=== PATIENT | female | born 1975 | race Caucasian/White ===

== ENCOUNTER 2019-02-04 18:31 | Emergency (ER) | payer OTHER ==
[2019-02-04 19:16] LABS: Absolute Lymphocytes (CBC) 2.7 K/uL (0.7-4.9); Absolute Monocytes 0.5 K/uL (0.1-1.3); Basophils % 1.4 % (0-1.3); Eosinophils % 1.5 % (0-4.4); Hematocrit 42.9 % (36.0-45.0); Lymphocytes % 32.6 % (15.3-44.8); MPV 8.6 fL (7.6-11.3); Monocytes % 5.4 % (3.3-12.3); RBC Red Blood Cell Count 4.65 M/uL (3.86-4.86)
[2019-02-04 19:25] LABS: Protime INR 0.9
[2019-02-04 19:38] LABS: Blood Morphology Comment NOT SEEN (NOT SEEN); Platelet Estimate ADEQ; Urine White Blood Cell Casts OK
[2019-02-04 19:40] LABS: ALT/SGPT 22 U/L (12-78); AST/SGOT 14 U/L (15-37); Albumin 3.9 g/dL (3.4-5.0); Alkaline Phosphatase 90 U/L (45-117); BUN Blood Urea Nitrogen 8 mg/dL (7-18); Bicarbonate 24 mmol/L (21-32); Bilirubin Direct 0.1 mg/dL (0-0.2); Bilirubin Total 0.3 mg/dL (0.2-1.0); Glucose Level 88 mg/dL (74-106); Magnesium 2.2 mg/dL (1.8-2.4); NT PRO-BNP 190 pg/mL (<125); Potassium 3.7 mmol/L (3.5-5.1); Protein, Total 6.9 g/dL (6.4-8.2); Sodium Level 142 mmol/L (136-145); Troponin (Emerg Dept Use Only) 0.09 ng/mL (0.0-0.045)
--- NOTE | 2019-02-04 19:59 | RAD REPORT ---
EXAM DESCRIPTION: RAD - Chest Single View - 02/04/2019 7:13 pm CLINICAL HISTORY: Substernal chest pain COMPARISON: None. TECHNIQUE: AP portable chest image was obtained 1910 hours . FINDINGS: Lungs are clear. Heart and vasculature are normal. No measurable pleural effusion and no p neumothorax. No acute bony abnormality seen. No acute aortic findings suspected. IMPRESSION: No acute cardiopulmonary process.
--- NOTE | 2019-02-04 21:20 | EDPHYS ---
Physician Documentation [facility] Name: Janeen Serrano Age: 44 yrs Sex: Female : 1975 Arrival Date: 02/04/2019 Time: 18:31 Bed 3 Private MD: ED Physician Historical: - Allergies: 02/04 18:49 NSAIDS; hb 18:49 Codeine; hb - Home Meds: 18:49 atorvastatin oral oral [Active]; Lisinopril Oral [Active]; Aspirin Oral [Active]; hb Dicyclomine Oral [Active]; Clonidine Oral [Active]; Prilosec Oral [Active]; Albuterol Inhl [Active]; - PMHx: 18:49 Hypertension; GERD; hb - PSHx: 18:49 Heart stents; hb - Immunization history:: Adult Immunizations up to date. - Social history:: Smoking status: Patient/guardian denies using tobacco. - Ebola Screening: : No symptoms or risks identified at this time. Vital Signs: 18:51 BP 184 / 104; Pulse 65; Resp 17; Temp 97.8; Pulse Ox 98% on R/A; Weight 76.2 kg; Height hb 5 ft. 5 in. (165.10 cm); Pain 3/10; 19:15 BP 181 / 107; Pulse 70; Resp 17 S; Pulse Ox 97% on R/A; ak1 21:20 BP 164 / 90; Pulse 58; Resp 16; Temp 98.1; Pulse Ox 97% on R/A; ak1 18:51 Body Mass Index 27.96 (76.20 kg, 165.10 cm) hb MDM: 19:20 Patient medically screened. tw02/04 18:55 Order name: Basic Metabolic Panel 02/04 18:55 Order name: CBC with Diff 02/04 18:55 Order name: LFT's 02/04 18:55 Order name: Magnesium 02/04 18:55 Order name: NT PRO-BNP 02/04 18:55 Order name: PT-INR 02/04 18:55 Order name: Troponin (emerg Dept Use Only) 02/04 18:55 Order name: XRAY Chest (1 view) 02/04 18:55 Order name: EKG; Complete Time: 18:56 2 02/04 18:55 Order name: Cardiac monitoring; Complete Time: 18:55 tw2 02/04 18:56 Order name: Basic Metabolic Panel EDNE 02/04 18:56 Order name: CBC with Automated Diff EDNE 02/04 18:56 Order name: Liver (Hepatic) Function [facility] 02/04 19:38 Order name: CBC Smear Scan EDNE 02/04 18:55 Order name: EKG - Nurse/Tech; Complete Time: 18:55 tw2 02/04 18:55 Order name: IV Saline Lock; Complete Time: 18:55 tw2 02/04 18:55 Order name: Labs collected and sent; Complete Time: 19:09 tw2 02/04 18:55 Order name: O2 Per Protocol; Complete Time: 18:56 tw2 02/04 18:55 Order name: O2 Sat Monitoring; Complete Time: 18:56 tw2 Administered Medications: No medications were administered Disposition: 02/04/19 21:19 Patient has left against medical advice. Impression: Chest pain, unspecified. - Patients states they are going to Home. - Condition is Undetermined. Follow up: Private Physician; When: Upon discharge from the Emergency Department; Reason: If symptoms return, Recheck today's complaints, Continuance of care. - Problem is new. - Symptoms are unchanged. Addendum: 02/24/2019 04:50 Addendum: HPI: Pt is a 44 year old female that comes to the ED with complaint of of t w4 chest pain. Pt states the pain is sharp. She states the pain does not radiate. There are no alleviating or aggravating factors related to pt's pain. Pt denies SOB, nausea, vomiting or cough.. Addendum: ROS: const: negative for fever, chills malaise, HEENT: negative for visual changes, sore throat, neck pain CV: positive for chest pain, negative for palpations CASEY Resp: negative for SOB, LAURITA , cough Abdomen: negative for abdominal pain, nausea, vomiting, diarrhea Ext: negative for injury, edema. all other systems negative except as marked. 04:58 Addendum: PE: Gen: well developed well nourished female in NAD HEENT:PERRLA, EOMI, neck t w4 supple Resp: CTAB, BS normal CV: RRR, nl S1, S2 no gallops Abdomen: soft, ND, NT Ext: no edema, nontender. Signatures: Dispatcher [employer] EDMS Tamanna Negron RN RN ak1 Christel Tidwell RN Safia Gomez RN RN tw2 Toy Garcia MD MD tw4 Corrections: (The following items were deleted from the chart) 02/04 21:22 21:19 02/04/2019 21:19 Patients has left against medical advice. Impression: Chest ak1 pain, unspecified. Patient states they are going to Home. Condition is Undetermined. Follow up: Private Physician; When: Upon discharge from the Emergency Department; Reason: If symptoms return, Recheck today's complaints, Continuance of care. Problem is new. Symptoms are unchanged. tw4
--- NOTE | 2019-02-04 21:20 | ER ---
Nurse's Notes [facility] Name: Janeen Serrano Age: 44 yrs Sex: Female : 1975 Arrival Date: 02/04/2019 Time: 18:31 Bed 3 Private MD: Diagnosis: Chest pain, unspecified Presentation: 02/04 18:45 Presenting complaint: Patient states: Worsening substernal chest pain that radiates to left chest and left arm x 3 days. 18:45 Transition of care: patient was not received from another setting of care. Onset of hb symptoms was February 01, 2019. Risk Assessment: Do you want to hurt yourself or someone else? Patient reports no desire to harm self or others. Care prior to arrival: None. 18:45 Method Of Arrival: Ambulatory 18:45 Acuity: SAVITA 3 hb 18:52 Initial Sepsis Screen: Does the patient meet any 2 criteria? No. Patient's initial hb sepsis screen is negative. Does the patient have a suspected source of infection? No. Patient's initial sepsis screen is negative. Historical: - Allergies: 18:49 NSAIDS; hb 18:49 Codeine; hb - Home Meds: 18:49 atorvastatin oral oral [Active]; Lisinopril Oral [Active]; Aspirin Oral [Active]; hb Dicyclomine Oral [Active]; Clonidine Oral [Active]; Prilosec Oral [Active]; Albuterol Inhl [Active]; - PMHx: 18:49 Hypertension; GERD; hb - PSHx: 18:49 Heart stents; hb - Immunization history:: Adult Immunizations up to date. - Social history:: Smoking status: Patient/guardian denies using tobacco. - Ebola Screening: : No symptoms or risks identified at this time. Screenin:46 Abuse screen: Denies threats or abuse. Denies injuries from another. Nutritional hb screening: No deficits noted. Tuberculosis screening: No symptoms or risk factors identified. Fall Risk None identified. Assessment: 18:52 General: Appears in no apparent distress. well groomed, Behavior is calm, cooperative, tw2 appropriate for age. Pain: Complains of pain in mid-sternal area and left breast Pain began 2-3 days ago. Neuro: Level of Consciousness is awake, alert, obeys commands, Oriented to person, place, time, situation. Cardiovascular: Reports chest pain, Heart tones S1 S2 Patient's skin is warm and dry. Respiratory: Airway is patent Respiratory effort is even, unlabored, Respiratory pattern is regular, symmetrical, Breath sounds are clear bilaterally. GI: No signs and/or symptoms were reported involving the gastrointestinal system. Abdomen is round non-distended, Bowel sounds present X 4 quads. : No signs and/or symptoms were reported regarding the genitourinary system. EENT: No signs and/or symptoms were reported regarding the EENT system. Derm: No signs and/or symptoms reported regarding the dermatologic system. Musculoskeletal: No signs and/or symptoms reported regarding the musculoskeletal system. Range of motion: intact in all extremities. 19:45 Reassessment: Patient appears in no apparent distress at this time. Patient and/or ak1 family updated on plan of care and expected duration. Pain level reassessed. Patient is alert, oriented x 3, equal unlabored respirations, skin warm/dry/pink. 19:45 General: Appears in no apparent distress. comfortable, Behavior is calm, cooperative, ak1 appropriate for age. 21:17 Reassessment: pt informed of possible observation. pt removed IV, refused to stay, ak1 refused to sign AMA form. Dr. Garcia notified. pt appears to be in no distress at this time. pt c/o increase pain due to fibromyalgia. pt left with steady gait with family. pt encouraged should she have chest pain again to return to ER or call 911. Vital Signs: 18:51 BP 184 / 104; Pulse 65; Resp 17; Temp 97.8; Pulse Ox 98% on R/A; Weight 76.2 kg; Height hb 5 ft. 5 in. (165.10 cm); Pain 3/10; 19:15 BP 181 / 107; Pulse 70; Resp 17 S; Pulse Ox 97% on R/A; ak1 21:20 BP 164 / 90; Pulse 58; Resp 16; Temp 98.1; Pulse Ox 97% on R/A; ak1 18:51 Body Mass Index 27.96 (76.20 kg, 165.10 cm) hb ED Course: 18:31 Patient arrived in ED. as 18:46 Arm band placed on. hb 18:49 Inserted saline lock: 22 gauge in left antecubital area, using aseptic technique. Blood sg collected. 18:51 Triage completed. hb 18:52 Safia Avelar, RN is Primary Nurse. tw2 18:52 Patient has correct armband on for positive identification. school lunch monitor on. Pulse hb ox on. NIBP on. 18:54 Patient maintains SpO2 saturation greater than 95% on room air. tw2 19:06 Initial lab(s) drawn, by me, sent to lab. by venipuncture 23G to right forearm. 3 19:08 Report given to GAYATRI Beckwith. tw2 19:12 XRAY Chest (1 view) In Process Unspecified. EDMS 19:20 Toy Garcia MD is Attending Physician. tw4 21:20 IV discontinued, pt removed IV and left AMA. ak1 Administered Medications: No medications were administered Outcome: 21:20 AMA Left before signing form. ak1 21:22 Patient left the ED. ak1 Signatures: Dispatcher [employer] EDMS Javy Solorzano RN RN sg Martinez, Amelia as Krenek, Amber RN RN ak1 Christel Tidwell, GAYATRI RN Safia Avelar, RN RN tw2 Ebonie Paiz 3 Toy Garcia MD MD tw4
--- NOTE | 2019-02-05 14:26 | EKG ---
Test Date: 2019-02-04 Test Time: 18:41:45 Record Systems Analyst: JADA MEASUREMENT RESULTS: Intervals: Rate: 62 NE: 116 QRSD: 80 QT: 418 QTc: 424 [place]: P: -12 NE: 116 QRS: 40 T: 52 INTERPRETIVE STATEMENTS: Normal sinus rhythm Normal ECG No previous ECG available for comparison Electronically Signed On 02-05-19 14:26:14 CDT by Dimas Magallon
== END 2019-02-04 21:22 | disposition left against medical advice (07) ==
LOC: ER 18:31
DX: R07.9 Chest pain, unspecified (principal); I10 Essential (primary) hypertension; K21.9 Gastro-esophageal reflux disease without esophagitis; Z79.82 Long term (current) use of aspirin; Z88.5 Allergy status to narcotic agent; Z88.6 Allergy status to analgesic agent; Z95.818 Presence of other cardiac implants and grafts
CPT/HCPCS: 36415; 71045; 80048; 80076; 83735; 83880; 84484; 85025; 85610; 93005; 99285

== ENCOUNTER 2019-02-09 19:54 | Emergency (ER) | payer OTHER ==
--- NOTE | 2019-02-09 20:45 | RAD REPORT ---
EXAM DESCRIPTION: RAD - Chest Single View - 02/09/2019 8:38 pm CLINICAL HISTORY: CHEST PAIN Chest pain. COMPARISON: Chest Single View dated 02/04/2019 FINDINGS: Portable technique limits examination quality. The lungs are grossly clear. The heart is normal in size. No displaced fractures. IMPRESSION: No acute intrathoracic process suspected.
[2019-02-09 21:02] LABS: Absolute Monocytes 0.4 K/uL (0.1-1.3); Absolute Neutrophil 4.4 K/uL (1.8-8.0); Basophils % 1.4 % (0-1.3); Eosinophils % 1.3 % (0-4.4); Hematocrit 43.3 % (36.0-45.0); Lymphocytes % 37.6 % (15.3-44.8); MPV 8.7 fL (7.6-11.3); Monocytes % 4.9 % (3.3-12.3); RBC Red Blood Cell Count 4.67 M/uL (3.86-4.86)
[2019-02-09 21:25] LABS: BUN Blood Urea Nitrogen 11 mg/dL (7-18); Bicarbonate 26 mmol/L (21-32); Glucose Level 136 mg/dL (74-106); NT PRO-BNP 235 pg/mL (<125); Potassium 3.4 mmol/L (3.5-5.1); Sodium Level 142 mmol/L (136-145); Troponin (Emerg Dept Use Only) < 0.02 ng/mL (0.0-0.045)
[2019-02-09] MEDS ORDERED: FENTANYL CITR 100 MCG/2 ML ONE (21:25)
--- NOTE | 2019-02-09 21:37 | EDPHYS ---
Physician Documentation [facility] Name: Janeen Serrano Age: 44 yrs Sex: Female : 1975 Arrival Date: 02/09/2019 Time: 19:55 Bed 14 Private MD: ED Physician Ivan Jones HPI: 02/09 21:31 This 44 yrs old Female presents to ER via Ambulatory with complaints of Chest gs Pain. 21:31 The patient or guardian reports chest pain that is located primarily in the anterior gs chest wall. Onset: at 16:00. Associated signs and symptoms: Pertinent positives: headache, Pertinent negatives: abdominal pain, diaphoresis, shortness of breath. The chest pain is described as dull. Duration: The patient or guardian reports a single episode, that is still ongoing. Modifying factors: The symptoms are alleviated by nothing. the symptoms are aggravated by nothing. Severity of pain: At its worst the pain was moderate in the emergency department the pain is unchanged. The patient has experienced similar episodes in the past, multiple times. 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 - Social history:: Smoking status: Patient uses tobacco products, smokes one pack cigarettes per day. - Ebola Screening: : Patient denies travel to an Ebola-affected area in the 21 days before illness onset. ROS: 21:31 All other systems are negative. gs Exam: 21:31 Head/Face: Normocephalic, atraumatic. Eyes: Pupils equal round and reactive to light, gs extra-ocular motions intact. Lids and lashes normal. Conjunctiva and sclera are non-icteric and not injected. Cornea within normal limits. Periorbital areas with no swelling, redness, or edema. ENT: Nares patent. No nasal discharge, no septal abnormalities noted. Tympanic membranes are normal and external auditory canals are clear. Oropharynx with no redness, swelling, or masses, exudates, or evidence of obstruction, uvula midline. Mucous membranes moist. Neck: Trachea midline, no thyromegaly or masses palpated, and no cervical lymphadenopathy. Supple, full range of motion without nuchal rigidity, or vertebral point tenderness. No Meningismus. Chest/axilla: Normal chest wall appearance and motion. Nontender with no deformity. No lesions are appreciated. Cardiovascular: Regular rate and rhythm with a normal S1 and S2. No gallops, murmurs, or rubs. Normal PMI, no JVD. No pulse deficits. Respiratory: Lungs have equal breath sounds bilaterally, clear to auscultation and percussion. No rales, rhonchi or wheezes noted. No increased work of breathing, no retractions or nasal flaring. Abdomen/GI: Soft, non-tender, with normal bowel sounds. No distension or tympany. No guarding or rebound. No evidence of tenderness throughout. Back: No spinal tenderness. No costovertebral tenderness. Full range of motion. Skin: Warm, dry with normal turgor. Normal color with no rashes, no lesions, and no evidence of cellulitis. MS/ Extremity: Pulses equal, no cyanosis. Neurovascular intact. Full, normal range of motion. Neuro: Awake and alert, GCS 15, oriented to person, place, time, and situation. Cranial nerves II-XII grossly intact. Motor strength 5/5 in all extremities. Sensory grossly intact. Cerebellar exam normal. Normal gait. 21:31 Constitutional: The patient appears in no acute distress, alert, awake. 21:31 ECG was reviewed by the Attending Physician. Vital Signs: 20:01 BP 158 / 101; Pulse 70; Resp 18; Temp 97.2; Pulse Ox 98% on R/A; Weight 74.84 kg (R); aj1 Height 5 ft. 5 in. (165.10 cm); Pain 8/10; 21:15 BP 156 / 96; Pulse 69; Resp 16; Pulse Ox 96% on R/A; aa1 20:01 Body Mass Index 27.46 (74.84 kg, 165.10 cm) aj1 MDM: 20:18 Patient medically screened. gs 21:31 Differential diagnosis: abnormal EKG, acute myocardial infarction, chest wall pain, gs stable angina, unstable angina. HEART Score: History: Slightly Suspicious (0), ECG: Non specific repolarization disturbance / LBTB / PM (1), Age: > 45 and < 65 years (1), Risk Factors: > or = 3 Risk factors for atherosclerotic disease (2), [Hypercholesterolemia] [Hypertension] [Active Smoker] Troponin: < or = 1 x Normal Limit (0). Data reviewed: vital signs, nurses notes, lab test result(s), EKG, radiologic studies. Counseling: I had a detailed discussion with the patient and/or guardian regarding: the historical points, exam findings, and any diagnostic results supporting the discharge/admit diagnosis, lab results, radiology results, pt understands risk category and doesn't want admission will dc with precautions. 02/09 20:19 Order name: Basic Metabolic Panel; Complete Time: 21:29 02/09 20:19 Order name: CBC with Diff; Complete Time: 21:18 02/09 20:19 Order name: NT PRO-BNP; Complete Time: : 02/09 20:19 Order name: Troponin (emerg Dept Use Only); Complete Time: :02/09 20:19 Order name: XRAY Chest (1 view); Complete Time: 21:18 02/09 20:19 Order name: EKG; Complete Time: 20:20 02/09 20:19 Order name: Cardiac monitoring; Complete Time: 21:02/09 20:19 Order name: EKG - Nurse/Tech; Complete Time: 21:02/09 20:19 Order name: IV Saline Lock; Complete Time: 20:52 02/09 20:19 Order name: Labs collected and sent; Complete Time: 20:52 02/09 20:19 Order name: O2 Per Protocol; Complete Time: 21:02/09 20:19 Order name: O2 Sat Monitoring; Complete Time: : gs EC: Rate is 56 beats/min. Rhythm is regular. VT interval is normal. QRS interval is normal. gs Q waves are Old. T waves are Flattened. Clinical impression: NSR w/ Non-specific ST/T Changes. Interpreted by me. Administered Medications: 21:21 Drug: fentaNYL (PF) 50 mcg Route: IVP; Site: right forearm; aa1 21:57 Follow up: Response: No adverse reaction; Pain is decreased aa1 Disposition: 02/09/19 21:37 Discharged to Home. Impression: Chest pain, unspecified. - Condition is Stable. - Discharge Instructions: Nonspecific Chest Pain. - Medication Reconciliation Form, Thank You Letter, Antibiotic Education, Prescription Opioid Use form. - Follow up: Dimas Magallon MD; When: 2 - 3 days; Reason: Re-evaluation by your physician. Signatures: Dispatcher [employer] EDKarine Hickman RN RN aj1 Stacey De La Garza RN RN aa1 Ivan Jones MD MD gs Corrections: (The following items were deleted from the chart) 21:58 21:37 02/09/2019 21:37 Discharged to Home. Impression: Chest pain, unspecified. aa1 Condition is Stable. Forms are Medication Reconciliation Form, Thank You Letter, Antibiotic Education, Prescription Opioid Use. Follow up: Dimas Magallon; When: 2 - 3 days; Reason: Re-evaluation by your physician. gs
--- NOTE | 2019-02-09 21:37 | ER ---
Nurse's Notes [facility] Name: Janeen Serrano Age: 44 yrs Sex: Female : 1975 Arrival Date: 02/09/2019 Time: 19:55 Bed 14 Private MD: Diagnosis: Chest pain, unspecified Presentation: 02/09 19:57 Presenting complaint: Patient states: Chest pain that started at 1600 today. Patient aj1 reports that she was seen here recently for chest pain, but she had decided to leave before getting results. Reports pain in middle and left side of chest, pain radiates to both shoulders and is worse when she takes a deep breath. Patient also reports shortness of breath. Transition of care: patient was not received from another setting of care. Onset of symptoms was February 09, 2019 at 16:00. Risk Assessment: Do you want to hurt yourself or someone else? Patient reports no desire to harm self or others. Initial Sepsis Screen: Does the patient meet any 2 criteria? No. Patient's initial sepsis screen is negative. Does the patient have a suspected source of infection? No. Patient's initial sepsis screen is negative. Care prior to arrival: None. 19:57 Method Of Arrival: Ambulatory aj1 19:57 Acuity: SAVITA 3 aj1 Triage Assessment: 20:01 General: Appears in no apparent distress. comfortable, Behavior is calm, cooperative, aj1 appropriate for age. Pain: Complains of pain in chest Pain currently is 8 out of 10 on a pain scale. Neuro: Level of Consciousness is awake, alert, obeys commands, Oriented to person, place, time, situation. Cardiovascular: Reports chest pain, Patient's skin is warm and dry. Respiratory: Airway is patent Respiratory effort is even, unlabored, Respiratory pattern is regular, symmetrical. 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 - Social history:: Smoking status: Patient uses tobacco products, smokes one pack cigarettes per day. - Ebola Screening: : Patient denies travel to an Ebola-affected area in the 21 days before illness onset. Screenin:30 Abuse screen: Denies threats or abuse. Denies injuries from another. Nutritional aa1 screening: No deficits noted. Tuberculosis screening: No symptoms or risk factors identified. Fall Risk None identified. Assessment: 20:30 General: Appears in no apparent distress. comfortable, Behavior is calm, cooperative, aa1 appropriate for age. Pain: Complains of pain in chest and head Quality of pain is described as aching, Pain began earlier today Is continuous. Neuro: Level of Consciousness is awake, alert, obeys commands, Oriented to person, place, time, situation, Moves all extremities. Full function Gait is steady, Speech is normal, Reports headache. Cardiovascular: Reports chest pain, states, "I think it's my migraine that's making my chest hurt because every time I get a migraine this happens." Heart tones S1 S2 present Rhythm is regular. Respiratory: Airway is patent Respiratory effort is even, unlabored, Respiratory pattern is regular, symmetrical. GI: No signs and/or symptoms were reported involving the gastrointestinal system. : No signs and/or symptoms were reported regarding the genitourinary system. EENT: No signs and/or symptoms were reported regarding the EENT system. Derm: Skin is intact, is healthy with good turgor, Skin is pink, warm \\T\\ dry. Musculoskeletal: Circulation, motion, and sensation intact. Capillary refill < 3 seconds. 21:15 Reassessment: Patient appears in no apparent distress at this time. Patient and/or aa1 family updated on plan of care and expected duration. Pain level reassessed. Patient is alert, oriented x 3, equal unlabored respirations, skin warm/dry/pink. Awaiting provider reassessment. 21:56 Reassessment: Patient appears in no apparent distress at this time. Patient is alert, aa1 oriented x 3, equal unlabored respirations, skin warm/dry/pink. Discussed d/c \\T\\ f/u instructions with pt; denies questions or concerns at this time. Ambulatory to lobby with steady gait. Patient states feeling better. Patient states symptoms have improved. Vital Signs: 20:01 BP 158 / 101; Pulse 70; Resp 18; Temp 97.2; Pulse Ox 98% on R/A; Weight 74.84 kg (R); aj1 Height 5 ft. 5 in. (165.10 cm); Pain 8/10; 21:15 BP 156 / 96; Pulse 69; Resp 16; Pulse Ox 96% on R/A; aa1 20:01 Body Mass Index 27.46 (74.84 kg, 165.10 cm) aj1 ED Course: 19:55 Patient arrived in ED. es 19:59 Triage completed. aj1 20:09 Ivan Jones MD is Attending Physician. 20:30 Stacey De La Garza, RN is Primary Nurse. aa1 20:30 Patient maintains SpO2 saturation greater than 95% on room air. aa1 20:30 Patient has correct armband on for positive identification. Placed in gown. Bed in low aa1 position. air sampling and monitoring on. Pulse ox on. NIBP on. 20:38 XRAY Chest (1 view) In Process Unspecified. EDMS 20:51 Initial lab(s) drawn, by mt, sent to lab. Inserted saline lock: 22 gauge in right lt1 antecubital area, using aseptic technique. 21:37 Dimas Magallon MD is Referral Physician. 21:56 No provider procedures requiring assistance completed. IV discontinued, intact, aa1 bleeding controlled, No redness/swelling at site. Pressure dressing applied. Administered Medications: 21:21 Drug: fentaNYL (PF) 50 mcg Route: IVP; Site: right forearm; aa1 21:57 Follow up: Response: No adverse reaction; Pain is decreased aa1 Outcome: 21:37 Discharge ordered by . gs 21:56 Discharged to home ambulatory, with friend. aa1 21:56 Condition: good 21:56 Discharge instructions given to patient, Instructed on discharge instructions, follow up and referral plans. Demonstrated understanding of instructions, follow-up care. 21:58 Patient left the ED. aa1 Signatures: Dispatcher [employer] Karine Izquierdo RN RN aj Stacey De La Garza RN RN aa1 Marni Rosenthal Ivan Jones MD MD [place] [id number] Corrections: (The following items were deleted from the chart) 21:44 21:37 Tenecteplase (TNKase) screening: Indications for treatment: aa1 aa1
--- NOTE | 2019-02-10 16:33 | EKG ---
Test Date: 2019-02-09 Test Time: 20:38:55 Assembler Metal Building: ABHIJIT MEASUREMENT RESULTS: Intervals: Rate: 56 NV: 136 QRSD: 78 QT: 438 QTc: 422 [place]: P: 36 NV: 136 QRS: 54 T: 66 INTERPRETIVE STATEMENTS: Sinus bradycardia Anterior infarct, age undetermined Abnormal ECG Compared to ECG 02/04/2019 18:41:45 Myocardial infarct finding now present Sinus rhythm no longer present Electronically Signed On 02-10-19 16:31:37 CDT by Dimas Magallon
== END 2019-02-09 21:58 | disposition home or self-care (01) ==
LOC: ER 19:54
DX: R07.9 Chest pain, unspecified (principal); I10 Essential (primary) hypertension; K21.9 Gastro-esophageal reflux disease without esophagitis; Z88.6 Allergy status to analgesic agent; F17.210 Nicotine dependence, cigarettes, uncomplicated
CPT/HCPCS: 36415; 71045; 80048; 83880; 84484; 85025; 93005; 96374; 99285; J3010

== ENCOUNTER 2022-06-18 08:36 | Emergency (ER) | payer OTHER ==
--- OUTSIDE RECORDS SUMMARY | 2022-06-18 08:42 | XMS REPORT | Continuity of Care Document ---
:1975 Author Organization [facility] t Address [address] [place] [address] Care Team Providers Name Role Phone Michael Posey Attending Clinician Unavailable Alis Lynn Attending Clinician Unavailable Natalya Park Admitting Clinician Unavailable Payers Payer Name Policy Type Policy Number Effective Date Expiration Date S ource Problems This patient has no known problems. Allergies, Adverse Reactions, Alerts Allergy Allergy Status Severity Reaction(s) Onset Inactive Treating Comm ents Source Name Type Date Date Clinician NSAIDS DA Active U NECK PAIN [facility] (Non-Agustin 8-13 Clear roidal 00:00: Villalobos Anti-Inf 00 [facility] codeine DA Active U ITCHING [facility] 8-13 Clear 00:00: Villalobos [address] [place] [address] ibuprofe DA Active U UPSET [facility] n STOMACH 8-13 Clear 00:00: Villalobos 00 [facility] Medications This patient has no known medications. Procedures This patient has no known procedures. Encounters Start End Encounter Admission Attending Care Care Encounter Source Date/Time Date/Time Type Type Clinicians Facility Department ID 2022-05-04 2022-05-04 Emergency EM BARBARA Posey TERS [id number] [facility] 20:22:00 22:49:00 Michael 84 [facility] 2022-05-04 2022-05-04 Emergency EM BARBARA Posey KARISSACL [id number] [facility] 20:22:00 22:49:00 Michael [id number] [facility] 2022-05-03 2022-05-03 Emergency EM Leah, Amr HCAMN HCAMN [id number] [facility] 11:28:00 16:46:00 [id number] [facility] 2022-05-03 2022-05-03 Emergency EM Leah, Amr HCAMN LIBRADO [id number] [facility] 11:28:00 16:46:00 [facility] Results Test Description Test Time Test Comments Results Result Comments Source B-TYPE NATRIURETIC PEPTIDE 2022-05-03 16:12:00 Test Item Value Reference Range Interpretation Comme nts B-TYPE NATRIURETIC PEPTIDE (test code = BNP) 29.5 PG/ML 5-100 N TROP-I HIGH [id number] 16:12:00 Test Item Value Reference Range Interpretation Comments TROP-I HIGH 4.8 pg/mL 0.0-51.4 N CAUTION: Units of the SENSITIVITY (test current TR OPI-HS test code = TROPIHS) methodology( pg/mL) differ from the prior test methodolog y (ng/mL) by afac tor of 1000. -------- -------- ---99th Percentile: Fem ales: 0.0-51.4 pg/mL Males: 0.0-76.2 pg/tailor fitter hese results were ob tained using Dimension EXL TnIHreagent. Re sults from different methodologies s hould not becompared to one another as asmita titative results may benedict y bymethod. HCG SERUM [id number] 16:12:00 Test Item Value Reference Range Interpretation Comments HCG SERUM QUAL (test code = HCGQL) NEGATIVE NEGATIVE BASIC METABOLIC [id number] 16:12:00 Test Item Value Reference Range Interpretation Comments SODIUM (test code = NA) 141 mmol/l 134.0-147.0 N POTASSIUM (test code = K) 3.2 mmol/L 3.6-5.2 L CHLORIDE (test code = CL) 103 mmol/l 98.0-107.0 N CARBON DIOXIDE (test code = CO2) 29.0 mmol/l 21.0-33.0 N ANION GAP (test code = GAP) 12.2 0-20 N GLUCOSE (test code = GLU) 123 mg/dl 70.0-110.0 H BLOOD UREA NITROGEN (test code = 14 mg/dl 7.0-18.0 N BUN) CREATININE (test code = CREAT) 0.68 mg/dL 0.60-1.30 N GFR NON BLACK (test code = 97 mL/min 95-105 N GFRNONBLACK) GFR BLACK (test code = GFRBLACK) 118 mL/min 115-127 N CALCIUM (test code = CA) 9.0 mg/dl 8.0-10.5 N CBC W/AUTO [id number] 15:37:00 Test Item Value Reference Range Interpretation Comments WHITE BLOOD CELL (test code = 7.0 K/mm3 4.5-11.0 N WBC) RED BLOOD CELL (test code = 4.91 M/mm3 3.80-5.20 N RBC) HEMOGLOBIN (test code = HGB) 15.0 gm/dL 12.0-16.0 N HEMATOCRIT (test code = HCT) 44.0 % 36.0-48.0 N MEAN CELL VOLUME (test code = 89.6 UM3 82.0-99.0 N MCV) MEAN CELL HGB (test code = MCH) 30.5 UUG 25.5-32.5 N MEAN CELL HGB CONCETRATION 34.1 gm/dL 29.0-35.5 N (test code = MCHC) RED CELL DISTRIBUTION WIDTH 13.5 % 11.5-15.0 N (test code = RDW) RED CELL DISTRIBUTION WIDTH SD 44.3 fL 34.8-50.2 N (test code = RDW-SD) PLATELET COUNT (test code = 251 K/mm3 150-400 N PLT) MEAN PLATELET VOLUME (test code 9.6 fl 7.4-10.4 N = MPV) NEUTROPHIL % (test code = NT%) 59.8 % 49.0-76.0 N IMMATURE GRANULOCYTE % (test 0.3 % 0.0-0.4 N code = IG%) LYMPHOCYTE % (test code = LY%) 31.0 % 23.0-38.0 N MONOCYTE % (test code = MO%) 6.9 % 1.0-10.0 N EOSINOPHIL % (test code = EO%) 1.3 % 1.0-5.0 N BASOPHIL % (test code = BA%) 0.7 % 0.0-1.0 N NUCLEATED RBC % (test code = 0.0 % 0.0-0.1 N NRBC%) NEUTROPHIL # (test code = NT#) 4.2 K/mm3 2.4-6.3 N IMMATURE GRANULOCYTE # (test 0.02 x10 3/uL 0.00-0.07 N code = IG#) LYMPHOCYTE # (test code = LY#) 2.2 K/mm3 1.2-4.0 N MONOCYTE # (test code = MO#) 0.5 K/mm3 0.0-0.6 N EOSINOPHIL # (test code = EO#) 0.1 K/MM3 0.0-0.7 N BASOPHIL # (test code = BA#) 0.1 K/mm3 0.0-0.2 N NUCLEATED RBC # (test code = 0.00 X10 3uL 0.00-0.01 N NRBC#) - CT HEAD/BRAIN W/O [id number] 12:14:00 [facility] : 1975 Sex: F FAX:Alis Lynn DO [place]: [address]: PRE [facility] 1975 Age[facility]S: 47/F [address] [facility] Unit: [id number] Loc: [place], [place] Phys: [place] [address] Acct: [id number] Dis Date: Status: PRE ER PHONE #: [phone] Exam Date: 05/03/2022 1207 FAX #: [phone] Reason: headache EXAMS: CPT CODE: [id number] CT HEAD/BRAIN W/O CONT 41672 EXAM: - CT HEAD/BRAIN W/O CONT HISTORY: headache LOCATION: T 18 COMPARISON: None available time of interpretation. TECHNIQUE: Axial tomograms through the brain were obtained without intravenous contrast. Coronal and sagittal reformatted images are provided. All CT scans are performed using radiation dose reduction technique. Technical factors are evaluated and adjusted to insure appropriate moderation of exposure. Automated dose management technology is applied to adjust the radiation dose to minimize exposure while achieving a diagnostic quality image. FINDINGS: The curtis white matter differentiation is preserved. No hypodensity suggesting acute cerebral infarction is identified, however MRI is more sensitive if this diagnosis is clinically suspected. No intracranial hemorrhage or extra-axial collection is identified. There is no massor mass effect. The ventricles and basal cisterns are age appropriate. The orbits are unremarkable. The visualized paranasal sinuses and mastoid air cells are clear. No acute fracture is present. IMPRESSION: No acute intracranial abnormality. at 1214 Reported and signed by: Tita Oliveros M.D. PAGE 1 Signed Report (CO NTINUED) FAX: LeahAlis TORRES [place]: EM St: PRE Name: MATTEO HERNANDES [facility] : 1975 Age/S: 47/F [address] Unit: [id number] Loc: E.[place], [place]: [place] [address] Acct: [id number] Dis Date: Status: PRE ER PHONE #: [phone] Exam Date: 05/03/2022 1207 FAX #: [phone]: headache EXAMS: CPT CODE: [id number] CT HEAD/BRAIN W/O CONT 22513 (Continued) CC: Alis Lynn DO Technologist: LAVELLE Ryderrd Dt/Tm: 05/03/2022 (1214) [email or web address] Orig Print D/T: S: 05/03/2022 (5377 PAGE 2 Signed Report- XR CHEST 1 [id number] 12:13:00 [facility] : 1975 Sex: F FAX:lAis Lynn DO [place]: EM St: PRE Name: MATTEO HERNANDES [facility] : 1975 Age/S: 47/F [address] Unit #: [id number] Loc: E.[place], [place]: [place] [address] Acct: [id number] Dis Date: Status: PRE ER PHONE #: [phone] Exam Date: 05/03/2022 1210 FAX #: [phone] Reason: SOB EXAMS: CPT CODE: [id number] XR CHEST 1 V 73700 EXAM: XR Chest 1 View INDICATION: SOB LOCATION CODE: T 18 COMPARISON: None available. TECHNIQUE: Frontal view of the chest was obtained. FINDINGS: The lungs are clear. There is no pleural effusion or pneumothorax. The cardiomediastinal silhouette is unremarkable. No acute osseous abnormality is identified. IMPRESSION: No acute cardiopulmonary abnormality. at 1213 Reported and signed by: Tita Oliveros M.D. CC: Alis Lynn DO Technologist: Kym Jauregui Date/Time/By: 05/03/2022 (1213) : By: [email or web address] PAGE 1 Signed Report FAX: Alis Lynn DO [place]: St: PRE--- Name: MATTEO HERNANDES [facility] : 1975 Age/S: 47/F [address] [facility] Unit #: [id number] Loc: E.[place], [place]: [place] [address] Acct: [id number] Dis Date: Status: PRE ER PHONE #: Exam Date: 05/03/2022 1210 FAX #: [phone] Reason: SOB EXAMS: CPT CODE: [id number] XR CHEST 1 V [id number] (Continued) Orig Print D/T: S: 05/03/2022 (1216) PAGE 2 Signed Report
[2022-06-18 09:10] LABS: Urine Blood Negative (Negative); Urine Glucose Negative (Negative); Urine Protein 1+ (Negative); Urine Specific Gravity >=1.030 (1.005-1.030)
[2022-06-18] MEDS ORDERED: CYCLOBENZAPRINE 10 MG TAB ONE (09:15)
[2022-06-18] MEDS ORDERED: ONDANSETRON 4 MG/2 ML VIAL ONE (09:15)
[2022-06-18] MEDS ORDERED: NA CHLORIDE 0.9% 1,000 ML ONE (09:16)
[2022-06-18 09:17] LABS: Absolute Lymphocytes (CBC) 0.6 K/uL (0.7-4.9); Hematocrit 42.2 % (36.0-45.0); Lymphocytes % 9.6 % (15.3-44.8); MCV 89.7 fL (80-100); MPV 8.2 fL (7.6-11.3)
[2022-06-18 09:35] LABS: Albumin 3.6 g/dL (3.4-5.0); Bilirubin Total 0.7 mg/dL (0.2-1.0); Protein, Total 7.3 g/dL (6.4-8.2)
[2022-06-18 09:36] LABS: Potassium 3.4 mmol/L (3.5-5.1)
--- NOTE | 2022-06-18 09:51 | RAD REPORT ---
EXAM DESCRIPTION: CT - Abdomen Pelvis Wo Contrast - 06/18/2022 9:15 am CLINICAL HISTORY: Abdominal pain. safd COMPARISON: No comparisons TECHNIQUE: CT imaging of the abdomen and pelvis was performed without contrast. Solid organ, bowel a nd vascular assessment is limited due to lack of IV and oral contrast. All CT scans are performed using dose optimization technique as appropriate and may include automated exposure control or mA/KV adjustment according to patient size. FINDINGS: The lower lung rodriguez are clear.Cholecystectomy. The liver, spleen, pancreas, adrenal glands are within normal limits for a limited non-contrast exami nation.Punctate calculi are present in both kidneys without hydronephrosis. No bowel obstruction, free air, free fluid or abscess. Mild sigmoid diverticulosis without diverticul itis. The appendix is normal. The osseous structures are within normal limits. IMPRESSION: Sigmoid diverticulosis coli is present without evidence of diverticulitis. Punctate stones in both kidneys without hydronephrosis. A limited non-contrast examination was performed as detailed.
[2022-06-18 09:58] LABS: Barbiturates NEGATIVE (NEGATIVE); Benzodiazepines NEGATIVE (NEGATIVE); Cocaine NEGATIVE (NEGATIVE); METHAMPHETAM NEGATIVE (NEGATIVE); Methadone NEGATIVE (NEGATIVE); Opiates NEGATIVE (NEGATIVE); Phencyclidine NEGATIVE (NEGATIVE); THC Cannibis POSITIVE (NEGATIVE)
--- NOTE | 2022-06-18 10:23 | EDPHYS ---
Physician Documentation [facility] Name: Janeen Serrano Age: 47 yrs Sex: Female : 1975 Arrival Date: 06/18/2022 Time: 08:41 Bed 5 Private MD: ED Physician Todd Crook HPI: 06/18 09:01 This 47 yrs old Female presents to ER via Ambulatory with complaints of jl9 Vomiting, Back Pain/ spasm that started yesterday. Patient denies any trauma. . 09:01 The patient presents to the emergency department with nausea, that is moderate. Onset: jl9 The symptoms/episode began/occurred yesterday. The symptoms are aggravated by movement, The symptoms are alleviated by remaining still. Associated signs and symptoms: Pertinent positives: nausea. Severity of symptoms: Pain is currently a 4 / 10. The patient has not experienced similar symptoms in the past. Historical: - Allergies: 08:53 Codeine; ap3 08:53 NSAIDS; ap3 - Home Meds: 08:53 lisinopril Oral [Active]; atorvastatin Oral [Active]; clonidine HCl 0.1 mg oral tab as ap3 needed [Active]; hydrochlorothiazide 25 mg Oral tab [Active]; - PMHx: 08:53 "Halo Treatment" of esophagus; Anxiety; Bipolar disorder; GERD; Hypertension; ap3 - Immunization history:: Client reports having NOT received the Covid vaccine. - Social history:: Smoking status: Patient reports the use of cigarette tobacco products, smokes one pack cigarettes per day. ROS: 09:02 Constitutional: Negative for fever, chills, and weight loss, Eyes: Negative for injury, jl9 pain, redness, and discharge, ENT: Negative for injury, pain, and discharge, Neck: Negative for injury, pain, and swelling, Cardiovascular: Negative for chest pain, palpitations, and edema, Respiratory: Negative for shortness of breath, cough, wheezing, and pleuritic chest pain, Abdomen/GI: Negative for abdominal pain, nausea, vomiting, diarrhea, and constipation. 09:02 : Negative for injury, bleeding, discharge, and swelling, MS/Extremity: Negative for injury and deformity, Skin: Negative for injury, rash, and discoloration, Neuro: Negative for headache, weakness, numbness, tingling, and seizure, Psych: Negative for depression, anxiety, suicide ideation, homicidal ideation, and hallucinations, Allergy/Immunology: Negative for hives, rash, and allergies, Endocrine: Negative for neck swelling, polydipsia, polyuria, polyphagia, and marked weight changes. 09:02 Back: Positive for pain with movement. Exam: 09:03 Constitutional: This is a well developed, well nourished patient who is awake, alert, jl9 and in no acute distress. Head/Face: Normocephalic, atraumatic. Eyes: Pupils equal round and reactive to light, extra-ocular motions intact. Lids and lashes normal. Conjunctiva and sclera are non-icteric and not injected. Cornea within normal limits. Periorbital areas with no swelling, redness, or edema. ENT: Mucous membranes moist. Neck: Trachea midline, no thyromegaly or masses palpated, and no cervical lymphadenopathy. Supple, full range of motion without nuchal rigidity, or vertebral point tenderness. No Meningismus. Chest/axilla: Normal chest wall appearance and motion. Nontender with no deformity. No lesions are appreciated. Cardiovascular: Regular rate and rhythm with a normal S1 and S2. No gallops, murmurs, or rubs. Normal PMI, no JVD. No pulse deficits. Respiratory: Lungs have equal breath sounds bilaterally, clear to auscultation and percussion. No rales, rhonchi or wheezes noted. No increased work of breathing, no retractions or nasal flaring. Abdomen/GI: Soft, non-tender, with normal bowel sounds. No distension or tympany. No guarding or rebound. No evidence of tenderness throughout. Back: No spinal tenderness. No costovertebral tenderness. Full range of motion. Skin: Warm, dry with normal turgor. Normal color with no rashes, no lesions, and no evidence of cellulitis. MS/ Extremity: Pulses equal, no cyanosis. Neurovascular intact. Full, normal range of motion. Neuro: Awake and alert, GCS 15, oriented to person, place, time, and situation. Cranial nerves II-XII grossly intact. Motor strength 5/5 in all extremities. Sensory grossly intact. Cerebellar exam normal. Normal gait. Vital Signs: 08:51 BP 147 / 93; Pulse 84; Resp 17; Temp 98.8; Pulse Ox 100% ; Weight 73.94 kg; Height 5 ap3 ft. 5 in. (165.10 cm); 10:02 BP 169 / 83; Pulse 80; Resp 17; Pulse Ox 98% ; Pain 3/10; jh6 08:51 Body Mass Index 27.12 (73.94 kg, 165.10 cm) ap3 MDM: 08:43 Patient medically screened. [facility] 09:03 Data reviewed: vital signs, nurses notes. [facility] 10:21 Counseling: I had a detailed discussion with the patient and/or guardian regarding: the [facility] historical points, exam findings, and any diagnostic results supporting the discharge/admit diagnosis, lab results, radiology results, the need for outpatient follow up, to return to the emergency department if symptoms worsen or persist or if there are any questions or concerns that arise at home. 06/18 08:56 Order name: CBC with Diff [facility] 06/18 08:56 Order name: CMP [facility] 06/18 08:56 Order name: Lipase [facility] 06/18 08:56 Order name: UDS [facility] 06/18 09:11 Order name: Urine Dipstick-Ancillary; Complete Time: 10:14 [facility] 06/18 09:17 Order name: CBC with Automated Diff [facility] 06/18 08:56 Order name: CT Abd/Pelvis - Without Contrast [facility] 06/18 09:37 Order name: Comprehensive Metabolic Panel [facility] 06/18 09:37 Order name: Lipase [facility] 06/18 09:52 Order name: CT [facility] 06/18 09:58 Order name: Urine Drug Screen [facility] 06/18 08:56 Order name: IV Saline Lock; Complete Time: 09:04 [facility] 06/18 08:56 Order name: Labs collected and sent; Complete Time: 09:04 [facility] 06/18 08:56 Order name: Urine Dipstick-Ancillary (obtain specimen); Complete Time: 09:29 [facility] Administered Medications: :28 Drug: NS 0.9% 1000 ml Route: IV; Rate: 1 bolus; Site: right antecubital; [facility] :28 Drug: Cyclobenzaprine 10 mg Route: PO; 6 09:29 Drug: Zofran (Ondansetron) 4 mg Route: IVP; Site: right antecubital; [facility] Disposition: 17:29 Co-signature as Attending Physician, Todd Crook MD. rn Disposition Summary: 06/18/22 10:22 Discharge Ordered Location: Home jl9 Condition: Stable jl9 Diagnosis - Low back pain jl9 - Diverticulosis of intestine, part unspecified, without perforation or abscess jl9 without bleeding Followup: jl9 - With: Private Physician - When: 1 - 2 days - Reason: Recheck today's complaints, Continuance of care, Re-evaluation by your physician Discharge Instructions: - Discharge Summary Sheet jl9 - Acute Back Pain, Adult jl9 - Diverticulosis jl9 Forms: - Medication Reconciliation Form jl9 - Thank You Letter jl9 - Antibiotic Education jl9 - Prescription Opioid Use jl9 Prescriptions: - ondansetron 8 mg Oral tablet,disintegrating - take 1 tablet by ORAL route every 12 hours As needed; 20 tablet; Refills: 0, jl9 Product Selection Permitted Signatures: Dispatcher [employer] EDTodd Mackenzie MD MD rn Prokisch, Amanda, RN RN ap3 Nanda Gandhi RN RN jh6 Satinder Gamez jl9 Corrections: (The following items were deleted from the chart) 10:21 09:01 This 47 yrs old Female presents to ER via Ambulatory with complaints of jl9 Vomiting, Back Pain that started yesterday. Patient denies any trauma. . jl9
--- NOTE | 2022-06-18 10:23 | ER ---
Nurse's Notes [facility] Name: Janeen Serrano Age: 47 yrs Sex: Female : 1975 Arrival Date: 06/18/2022 Time: 08:41 Bed 5 Private MD: Diagnosis: Low back pain;Diverticulosis of intestine, part unspecified, without perforation or abscess without bleeding Presentation: 06/18 08:51 Chief complaint: Patient states: she suddenly had the urge to vomit yesterday ap3 afternoon, and she reports feeling like she "threw her back out". Patient reports lower back pain along with her nausea and vomiting. Coronavirus screen: At this time, the client does not indicate any symptoms associated with coronavirus-19. Ebola Screen: No symptoms or risks identified at this time. Initial Sepsis Screen: Does the patient meet any 2 criteria? No. Patient's initial sepsis screen is negative. Does the patient have a suspected source of infection? No. Patient's initial sepsis screen is negative. Risk Assessment: Do you want to hurt yourself or someone else? Patient reports no desire to harm self or others. Onset of symptoms was June 17, 2022. 08:51 Method Of Arrival: Ambulatory ap3 08:51 Acuity: SAVITA 3 ap3 Triage Assessment: 08:55 General: Appears uncomfortable, Behavior is calm, cooperative. Pain: Complains of pain ap3 in low back area Pain radiates to right leg and left leg. Neuro: Level of Consciousness is awake, alert, obeys commands, Oriented to person, place, time, situation. Cardiovascular: Patient's skin is warm and dry. Respiratory: Airway is patent Respiratory effort is even, unlabored, Respiratory pattern is regular, symmetrical. GI: Reports nausea, vomiting. Historical: - Allergies: 08:53 Codeine; ap3 08:53 NSAIDS; ap3 - Home Meds: 08:53 lisinopril Oral [Active]; atorvastatin Oral [Active]; clonidine HCl 0.1 mg oral tab as ap3 needed [Active]; hydrochlorothiazide 25 mg Oral tab [Active]; - PMHx: 08:53 "Halo Treatment" of esophagus; Anxiety; Bipolar disorder; GERD; Hypertension; ap3 - Immunization history:: Client reports having NOT received the Covid vaccine. - Social history:: Smoking status: Patient reports the use of cigarette tobacco products, smokes one pack cigarettes per day. Screenin:56 Abuse screen: Denies threats or abuse. Nutritional screening: No deficits noted. ap3 Tuberculosis screening: No symptoms or risk factors identified. Fall Risk None identified. Assessment: 09:29 General: Appears in no apparent distress. Behavior is calm, cooperative. Pain: jh6 Complains of pain in right upper quadrant and left upper quadrant. GI: Abdomen is flat, round Bowel sounds present X 4 quads. Abd is soft X 4 quads Reports nausea. 09:58 Reassessment: Patient and/or family updated on plan of care and expected duration. Pain jh6 level reassessed. Patient is alert, oriented x 3, equal unlabored respirations, skin warm/dry/pink. No episodes of vomiting, friend at bedside, waiting results. 10:45 Reassessment: No changes from previously documented assessment. jh6 Vital Signs: 08:51 BP 147 / 93; Pulse 84; Resp 17; Temp 98.8; Pulse Ox 100% ; Weight 73.94 kg; Height 5 ap3 ft. 5 in. (165.10 cm); 10:02 BP 169 / 83; Pulse 80; Resp 17; Pulse Ox 98% ; Pain 3/10; jh6 08:51 Body Mass Index 27.12 (73.94 kg, 165.10 cm) ap3 ED Course: 08:41 Patient arrived in ED. rg4 08:43 Satinder Gamez [facility]. jl9 08:43 Todd Crook MD is Attending Physician. jl9 08:52 Nanda Gandhi, GAYATRI is Primary Nurse. jh6 08:53 Triage completed. ap3 08:56 Arm band placed on right wrist. ap3 08:56 Patient has correct armband on for positive identification. Call light in reach. Adult ap3 w/ patient. Pulse ox on. NIBP on. Door closed. Noise minimized. 09:04 Inserted saline lock: 20 gauge in right forearm, using aseptic technique. Blood mb8 collected. 09:29 UDS Sent. jh6 09:39 CBC with Diff Sent. kc6 09:39 CMP Sent. kc6 09:39 Lipase Sent. kc6 10:41 CT In Process Unspecified. EDMS 10:44 IV discontinued, intact, bleeding controlled, No redness/swelling at site. Pressure jh6 dressing applied. 10:44 No provider procedures requiring assistance completed. 6 Administered Medications: 09:28 Drug: NS 0.9% 1000 ml Route: IV; Rate: 1 bolus; Site: right antecubital; [facility] 09:28 Drug: Cyclobenzaprine 10 mg Route: PO; [facility] 09:29 Drug: Zofran (Ondansetron) 4 mg Route: IVP; Site: right antecubital; [facility] Medication: 09:30 VIS not applicable for this client. [facility] Outcome: 10:22 Discharge ordered by . itzel 10:44 Discharged to home ambulatory. [facility] 10:44 Condition: improved 10:44 Discharge instructions given to patient, friend, Instructed on discharge instructions, follow up and referral plans. Demonstrated understanding of instructions, medications, Prescriptions given X 1. 10:45 Patient left the ED. [facility] Signatures: Dispatcher [employer] EDKym Davenport rg4 Janell Zuleta RN RN ap3 Nanda Gandhi RN RN 6 Satinder Gamez9 Tiffanie Anthony6 Antoni James RN RN mb8
[2022-06-20 06:54] VITALS: TEMP 98.8
[2022-06-20 07:04] VITALS: BP 169/83; O2SAT 98
== END 2022-06-18 10:45 | disposition home or self-care (01) ==
LOC: ER 08:36
DX: M54.50 Low back pain, unspecified (principal); K57.30 Diverticulosis of large intestine without perforation or abscess without bleeding; I10 Essential (primary) hypertension; F17.210 Nicotine dependence, cigarettes, uncomplicated; Z88.5 Allergy status to narcotic agent; Z88.6 Allergy status to analgesic agent
CPT/HCPCS: 85025; 36415; 81003; 83690; 80053; 80307; 74176; 96374; 99284; J7030; J2405